=== PATIENT | female | born 1985 | race Caucasian/White ===

== ENCOUNTER 2022-06-28 09:38 | Outpatient (CLI) | payer OTHER, SELFPAY ==
--- NOTE | ~2022-06-28 | MR_ITS ---
EXAMINATION: MR ankle RT wo con DATE: 06/28/2022 10:20 INDICATION: Chronic right ankle pain TECHNIQUE: Magnetic resonance imaging (MRI) of the right ankle was performed without intravenous cont rast. Sequences included sagittal, coronal, and axial proton-density weighted fast spin echo without and with fat saturation. COMPARISON: None. FINDINGS: Medial ankle ligaments: Deep and superficial deltoid ligaments as well as the spring ligament are normal. Lateral ankle ligaments: The anterior and posterior inferior tibiofibular ligaments are normal. The anterior talofibular, calc aneofibular and posterior talofibular ligaments are normal. Tendons: Achilles tendon is normal. The peroneus longus and brevis tendons are normal. The tibialis anterior a nd extensor hallucis longus and extensor digitorum longus tendons are normal. The tibialis posterior, flexor digitorum longus and flexor hallucis longus tendons are normal. Plantar fascia: Plantar aponeurosis is normal. Bones/other: Periostitis predominantly along the posterior and medial aspect of the distal tibial metaphysis exten ding more proximally to the diaphysis at the cephalad-most plane of imaging. There is underlying mild marrow edema which also becomes more prominent at the cephalad margin of imaging. No evident fractur e line. No T1 marrow signal loss to suggest osteomyelitis or other pathologic marrow replacing proces s. Fluid: Subcutaneous edema greatest along the medial side of the distal lower leg and ankle. Physiologic amou nt fluid in the joint spaces. IMPRESSION: 1. Marrow edema and periostitis along the distal tibial metaphysis and metadiaphysis without evident underlying fracture. Distribution suggests either rivers splints, stress reaction or potentially stress fracture above the level of the imaging. 2. Otherwise unremarkable MRI of the right ankle with normal ligaments and tendons. Reviewed, dictated and finalized at location A. IMPRESSION: 1. Marrow edema and periostitis along the distal tibial metaphysis and metadiap hysis without evident underlying fracture. Distribution suggests either rivers sp lints, stress reaction or potentially stress fracture above the level of the im aging. 2. Otherwise unremarkable MRI of the right ankle with normal ligaments and tend ons.
== END 2022-06-28 09:39 | disposition home or self-care (01) ==
PROVIDERS: PCP Orthopaedic Surgery; Visit Provider Orthopaedic Surgery
DX: M25.571 Pain in right ankle and joints of right foot (principal); G89.29 Other chronic pain
CPT/HCPCS: 73721